=== PATIENT | female | born 1980 | race Two or more races ===

== ENCOUNTER 2019-07-12 00:01 | Emergency (ER) | payer MEDICAID ==
[~2019-07-12] VITALS: Ht 165.1 cm; Wt 99.8 kg
[2019-07-12 01:54] VITALS: BP 138/86
[2019-07-12] MEDS ORDERED: TRIAMCINOLONE 40MG/ML 1ML VIAL IM ONE (02:30)
== END 2019-07-12 03:27 | disposition home or self-care (01) ==
LOC: ER 00:05
DX: L91.0 Hypertrophic scar (principal)
CPT/HCPCS: 96372; 99283; J3301